=== PATIENT | female | born 1980 | race Caucasian/White ===

== ENCOUNTER 2017-04-21 19:06 | Emergency (ER) | payer OTHER ==
[~2017-04-21] VITALS: Ht 162.6 cm; Wt 104.3 kg
--- NOTE | 2017-04-21 19:08 | NUR ---
ARRIVAL PT ARRIVED TO THE ED. TAKEN TO RM 1 VIA W/C. PT ALERT AND COOP. NO ACUTE DISTRESS. C/O TIGHTNESS IN HER CHEST WITCH RADIATES DOWN HER RT ARM. RT TO BEDSIDE FOR EKG. PT PLACED ON CP MONITOR AND TRIAGE DONE
[2017-04-21] MEDS ORDERED: ASPIRIN ONE (19:09)
--- NOTE | 2017-04-21 19:15 | NUR ---
MED 325MG ASPIRIN GIVEN PO FOLLOWED BY 1 SPRAY NITROGLYCERIN. PT PLACED ON O2 AT 3LPM VIA NC. PT ALERT AND COOP. NO ACUTE DISTRESS. COLOR PINK
--- NOTE | 2017-04-21 19:20 | NUR ---
IV PIV STARTED RT AC. 20G. LABS DRAWN WITH PIV START. SALINE LOCKED
--- NOTE | 2017-04-21 19:23 | PCM.EKG ---
[facility] Test Date: 2017-04-21 Test Time: 19:18:11 Pat Name: LEW MCKEON Department: Room: Gender: [facility] Specialist: JEAN : 1980 Requested By: MONROE MUNIZ Order Number: [id number] Reading MD: Measurements Intervals [place] Rate: 98 P: 56 SC: 156 QRS: 52 QRSD: 86 T: 69 QT: 370 QTc: 472 Interpretive Statements Normal sinus rhythm Nonspecific T wave abnormality Prolonged QT Abnormal ECG No previous ECG available for comparison Please click the below link to view image of tracing.
[2017-04-21 19:33] LABS: BASOPHIL # 0.1 10^3/uL (0.0-0.1); BASOPHIL % 0.5 % (0.0-0.2); EOSINOPHIL # 0.1 10^3/uL (0.0-0.2); EOSINOPHIL % 0.6 % (0.0-5.0); HEMOGLOBIN 13.7 g/dL (12.0-15.0); LYMPHOCYTES # 4.6 10^3/uL (1.0-4.8); LYMPHOCYTES % 36.2 % (24.0-44.0); MEAN CELL HGB 27.6 pg (26-34); MEAN CELL HGB CONCENTRATION 32.2 g/dL (33-37); MEAN CORP VOLUME 85.5 fL (78-100); MEAN PLATELET VOLUME 9.3 fL (7.8-11.0); MONOCYTES # 0.8 10^3/uL (0.3-0.8); MONOCYTES % 6.5 % (5.0-12.0); NEUTROPHIL # 7.2 10^3/uL (1.8-7.7); RED CELL DISTRIBUTION WIDTH 13.5 % (11.5-14.5); WHITE BLOOD CELL 12.8 10^3/uL (4.5-11.0)
--- NOTE | 2017-04-21 19:40 | DIREP ---
PROCEDURE:CHEST 1 VIEW COMPARISON:None. INDICATIONS:dyspnea FINDINGS: LUNGS/PLEURA:No significant pulmonary parenchymal abnormalities. No effusion or pneumothorax. VASCULATURE:Normal. Unremarkable pulmonary vasculature. CARDIAC:Normal. No cardiac silhouette abnormality or cardiomegaly. MEDIASTINUM:Normal. No visible mass or adenopathy. BONES:Normal. No fracture or visible bony lesion. OTHER:EKG leads overlie the chest. CONCLUSION: No acute cardiopulmonary abnormality. Dictated by: Thomas Villagran MD on 04/21/2017 at 07:40 PM
[2017-04-21] MEDS ORDERED: ASPIRIN PO STA (19:41)
[2017-04-21 19:47] VITALS: BP 134/78
[2017-04-21 19:55] LABS: ALANINE AMINOTRANSFERASE(ML) 34 U/L (12-78); ALKALINE PHOSPHATASE 48 U/L (50-136); ASPARTATE AMINO TRANSFERASE 18 U/L (0-35); CALCIUM 8.9 mg/dL (8.4-10.5); GLUCOSE 101 mg/dL (70-110)
[2017-04-21] MEDS ORDERED: NITROLINGUAL TL ONE (20:00)
--- NOTE | 2017-04-21 20:00 | NUR ---
ASSESS PT STATES THE TIGHTNESS HAS IMPROVED BUT STILL REMAINS. NO C/O PAIN AT THIS TIME. NO ACUTE DISTRESS NOTED. COLOR PINK. O2 IN USE VIA NC AT 3LPM. NSR NOTED ON CP MONITOR
--- NOTE | 2017-04-21 20:05 | ER.PDOC ---
General Chief Complaint: Chest Pain-Cardiac Nature Stated Complaint: CHEST PAIN Time seen by MD: 19:31 Source: patient Exam Limitations: no limitations History of Present Illness Initial Comments pt has mild dyspnea and feeling anxiety in follow up with results of labs previously performed, denies any chest pain per se Timing/Duration: 4-6 hours Severity: mild Activities at Onset: none Prior Episodes/Possible Cause: no prior episodes Associated Symptoms: denies symptoms Allergies: Coded Allergies: No Known Allergies (Unverified , 04/21/17) Past Medical History Medical History: no pertinent history Surgical History: cholecystectomy, , tonsillectomy LMP (females 10-50): last week Family History Significant Family History: no pertinent family hx Social History Smoking: non-smoker Alcohol Use: none Drug Use: none Reviewed Nursing Reviewed: Vital Signs, Abn. Noted Review of Systems EENTM: no symptoms reported Respiratory: see HPI, shortness of breath Cardiovascular: see HPI Gastrointestinal: no symptoms reported Genitourinary: no symptoms reported Musculoskeletal: no symptoms reported Skin: no symptoms reported Psychiatric/Neurological: anxiety Endocrine: no symptoms reported Physical Exam General Appearance: Mild Distress HEENT: PERRL/EOMI, Normal ENT Inspection, TMs Normal, Pharynx Normal Neck: Non-Tender, Full Range of Motion, Supple, Normal Inspection Respiratory: chest non-tender, lungs clear, normal breath sounds, no respiratory distress, no accessory muscle use Cardiovascular: Normal Peripheral Pulses, Regular Rate, Rhythm, No Edema, No Gallop, No JVD, No Murmur Extremities: Normal Range of Motion, Non-Tender, Normal Inspection, No Pedal Edema, No Calf Tenderness, Normal Capillary Refill 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, No Motor/Sensory Deficits, Alert, Normal Mood/Affect, Oriented x 3 Skin: Normal Color, Warm/Dry Results/Orders Results/Orders Laboratory Tests Test 04/21/17 19:25 White Blood Count 12.8 10^3/uL (4.5-11.0) Red Blood Count 4.97 10^6/uL (4.00-5.20) Hemoglobin 13.7 g/dL (12.0-15.0) Hematocrit 42.5 % (36.0-46.0) Mean Corpuscular Volume 85.5 fL (78-100) Mean Corpuscular Hemoglobin 27.6 pg (26-34) Mean Corpuscular Hemoglobin Concent 32.2 g/dL (33-37) Red Cell Distribution Width 13.5 % (11.5-14.5) Platelet Count 266 10^3/uL (150-400) Mean Platelet Volume 9.3 fL (7.8-11.0) Neutrophils (%) (Auto) 56.0 % (41.0-85.0) Lymphocytes (%) (Auto) 36.2 % (24.0-44.0) Monocytes (%) (Auto) 6.5 % (5.0-12.0) Neutrophils # (Auto) 7.2 10^3/uL (1.8-7.7) Lymphocytes # (Auto) 4.6 10^3/uL (1.0-4.8) Monocytes # (Auto) 0.8 10^3/uL (0.3-0.8) Absolute Immature Granulocyte (auto 0.03 10^3 u/L (0-2) Eosinophils % 0.6 % (0.0-5.0) Basophils % 0.5 % (0.0-0.2) Basophils # 0.1 10^3/uL (0.0-0.1) Eosinophil Count 0.1 10^3/uL (0.0-0.2) D-Dimer 0.42 mg/L (0.19-0.49) Sodium Level 142 mmol/L (132-145) Potassium Level 3.4 mmol/L (3.6-5.2) Chloride Level 103.0 mmol/L (96-109) Carbon Dioxide Level 25.0 mmol/L (20.0-32) Anion Gap 17.4 Blood Urea Nitrogen 12 mg/dL (7-18) Creatinine 0.82 mg/dL (0.59-1.40) Estimated GFR () 96.6 (>/=60) BUN/Creatinine Ratio 14.0 Glucose Level 101 mg/dL (70-110) Calcium Level 8.9 mg/dL (8.4-10.5) Total Bilirubin 0.4 mg/dL (0.2-1.0) Aspartate Amino Transf (AST/SGOT) 18 U/L (0-35) Alanine Aminotransferase (ALT/SGPT) 34 U/L (12-78) Alkaline Phosphatase 48 U/L (50-136) Troponin I < 0.02 ng/mL (0.00-0.05) Pro-B-Type Natriuretic Peptide 5 pg/mL (0-125) Total Protein 7.3 g/dL (6.4-8.2) Albumin 3.9 g/dL (3.4-5.0) Globulin 3.4 Percent Immature Gran (Cell Imm) 0.20 % (0.00-0.50) Helicobacter pylori Screen NEGATIVE (NEGATIVE) Administered Medications Medications (Trade) Dose Ordered Sig/Harvey Route PRN Reason Start Time Stop Time Status Last Admin Dose Admin Nitroglycerin (Nitrolingual) 1 sprays OT ONCE TL 04/21/17 20:00 04/21/17 20:01 DC 04/21/17 19:30 Aspirin (Aspirin) 325 mg STAT STAT PO 04/21/17 19:41 04/21/17 19:46 DC 04/21/17 19:30 Ketorolac Tromethamine (Toradol) 30 mg STAT STAT IV 04/21/17 20:52 04/21/17 20:53 DC 04/21/17 20:58 Progress Progress discussed CXR, labs, given Toradol for chest wall pain from which pt reports good relief of symptoms. Departure Time of Disposition: 21:48 Disposition: 01 HOME, SELF-CARE Impression: Primary Impression: Chest wall pain Condition: Improved Referrals: MONROE MUNIZ MD (PCP) PRIMARY CARE PROVIDER Duration or Time Spent with Pa: 20 MONROE MUNIZ MD Apr 21, 2017 20:04
[2017-04-21] MEDS ORDERED: TORADOL IV STA (20:52)
[2017-04-21] MEDS ORDERED: TORADOL ONE (20:52)
[2017-04-21 22:43] VITALS: BP 134/78
== END 2017-04-21 22:10 | disposition home or self-care (01) ==
LOC: ER 19:06
DX: R07.89 Other chest pain (principal); F41.9 Anxiety disorder, unspecified; Z79.82 Long term (current) use of aspirin; Z90.49 Acquired absence of other specified parts of digestive tract
CPT/HCPCS: 36415; 71045; 80053; 83880; 84484; 85025; 85379; 86677; 93005; 96374; 99285; J1885

== ENCOUNTER 2018-09-21 16:52 | Emergency (ER) | payer OTHER ==
[~2018-09-21] VITALS: Ht 162.6 cm; Wt 108.9 kg
[2018-09-21 17:16] VITALS: BP 109/72
--- NOTE | 2018-09-21 17:31 | ER.PDOC ---
General Chief Complaint: Extremities Stated Complaint: FALL-LEFT ANKLE INJURY Time seen by MD: 17:29 Source: patient Exam Limitations: no limitations History of Present Illness Initial Comments 38 Y/O F WITH HX TO ED FALLING OFF A STEP X 2 HRS AGO TWISTING LEFT ANKLE/FOOT, NO OTHER INJURY. Onset: just prior to arrival Where: home Context: fall, twist Severity: moderate Associated Symptoms: unable to bear weight Allergies: Coded Allergies: No Known Allergies (Unverified , 04/21/17) Past Medical History Medical History: no pertinent history Surgical History: cardiac cath, cholecystectomy, stent, tonsillectomy, other LMP (females 10-50): last week Family History Significant Family History: no pertinent family hx Social History Smoking: quit greater than 1 year, other Alcohol Use: none Drug Use: none Reviewed Nursing Reviewed: Vital Signs, Abn. Noted, Nursing Assessment Review of Systems Constitutional: no symptoms reported EENTM: no symptoms reported Respiratory: no symptoms reported Cardiovascular: no symptoms reported Gastrointestinal: no symptoms reported Genitourinary: no symptoms reported Musculoskeletal: see HPI, joint pain, other Skin: no symptoms reported Psychiatric/Neurological: no symptoms reported Physical Exam General Appearance: Alert, Mild Distress Foot: tenderness Ankle: tenderness, swelling Knee: nml inspection, non-tender, nml ROM, no joint swelling Thigh/Hip: nml inspection Gait: limited by pain Neuro/Vasc/Tendon: sensation nml, motor nml, no vascular compromise, tendon function nml Skin: warm/dry Comments TO ED IF WORSE OR NO BETTER, CRUTCHES WITH AIR CAST X 1 WEEK THEN AIR CAST X 1-2 WEEKS, ICE X 5-7 DAYS, FOLLOW UP WITH DR GARCIA IF NO BETTER. Results/Orders Results/Orders Orders - MILDRED DAVIS DO Xr Ankle 3v Lt (09/21/18 17:18) Xr Foot Lt (09/21/18 17:18) Vital Signs Date Time Temp Pulse Resp B/P (MAP) Pulse Ox O2 Delivery O2 Flow Rate FiO2 09/21/18 17:16 98.5 72 17 109/72 (84) 98 Room Air 09/21/18 17:02 98.5 72 17 09/21/18 17:02 98.5 72 17 98 Room Air Progress Progress DIFF DX IN DETAIL, FOLLOW UP DISCUSSED. #2 XRAY: XRAY Comments: NEG FOOT, ANKLE. Departure Time of Disposition: 18:53 Disposition: 01 HOME, SELF-CARE Impression: Primary Impression: Ankle sprain Condition: Stable Patient Instructions: Ankle Exercises (for Rehabilitation) Referrals: PCP,UNKNOWN (PCP) PRIMARY CARE PROVIDER AQUILINO GARCIA MD Additional Instructions: TO ED NEEDED OR IF NO BETTER, ICE X 5-7 DAYS, CRUTCHES WITH AIR CAST X 1 WEEK, THEN AIR CAST X 2 WEEKS, FOLLOW UP WITH DR GARCIA IF NO BETTER. Duration or Time Spent with Pa: 20 MIN MILDRED DAVIS DO Sep 21, 2018 17:31
--- NOTE | 2018-09-21 17:40 | DIREP ---
PROCEDURE:XRAY FOOT MIN 3 VWS-LT COMPARISON:[facility], CR, XRAY ANKLE MIN 3VWS-LT, 09/21/2018, 05:09 PM. INDICATIONS:FALL, LEFT FOOT PAIN FINDINGS: BONES:Normal. JOINTS:Normal. SOFT TISSUES:Normal. OTHER:No additional findings. CONCLUSION:Normal examination. Dictated by: Yobany Flanagan M.D. on 09/21/2018 at 05:38 PM
--- NOTE | 2018-09-21 17:41 | DIREP ---
PROCEDURE:XRAY ANKLE MIN 3VWS-LT COMPARISON:[facility], , XRAY FOOT MIN 3 VWS-LT, 09/21/2018, 05:09 PM. INDICATIONS:FALL, LEFT ANKLE PAIN FINDINGS: BONES:No fractures or other acute bony abnormalities. JOINTS:Normal. SOFT TISSUES:Marked swelling laterally. OTHER:No additional findings. CONCLUSION:Soft tissue swelling. No left ankle fractures. Dictated by: Yobany Flanagan M.D. on 09/21/2018 at 05:39 PM
[2018-09-21 19:20] VITALS: BP 99/66
[2018-09-21 19:24] VITALS: BP 109/72
== END 2018-09-21 19:22 | disposition home or self-care (01) ==
LOC: ER 16:52
DX: S93.402A Sprain of unspecified ligament of left ankle, initial encounter (principal); W19.XXXA Unspecified fall, initial encounter; Z90.49 Acquired absence of other specified parts of digestive tract; Z87.891 Personal history of nicotine dependence; Z90.89 Acquired absence of other organs; W10.8XXA Fall (on) (from) other stairs and steps, initial encounter; Y93.89 Activity, other specified; Y92.098 Other place in other non-institutional residence as the place of occurrence of the external cause; Y99.8 Other external cause status
CPT/HCPCS: 99284; 73610-LT; 73630-LT